=== PATIENT | female | born 1970 | race Caucasian/White ===

== ENCOUNTER 2020-12-04 20:39 | Emergency (ER) | payer BC, MEDICAID ==
[~2020-12-04] VITALS: Ht 160 cm; Wt 74.4 kg
[2020-12-04 21:04] VITALS: BP 148/91
[2020-12-04] MEDS ORDERED: IBUP-1955 PO (22:01)
== END 2020-12-04 22:30 | disposition home or self-care (01) ==
LOC: ER 20:47
DX: M79.622 Pain in left upper arm (principal); R22.32 Localized swelling, mass and lump, left upper limb; I10 Essential (primary) hypertension; K21.9 Gastro-esophageal reflux disease without esophagitis; Z88.6 Allergy status to analgesic agent
CPT/HCPCS: 93971-TC

== ENCOUNTER 2021-06-07 14:00 | Emergency (ER) | payer MEDICAID ==
[~2021-06-07] VITALS: Ht 160 cm; Wt 81.6 kg
[2021-06-07 14:00] VITALS: BP 140/90
[~2021-06-07 14:00] MED LIST: IBUP-1955 PO
[2021-06-07] MEDS ORDERED: KETOROLAC TROMETHAMINE INJ 30 MG/ML VIAL ONE (14:29)
[2021-06-07] MEDS ORDERED: KETOROLAC TROMETHAMINE INJ 30 MG/ML VIAL IM ONE (14:30)
[2021-06-07] MEDS ORDERED: CYCLOBENZAPRINE 10 MG TABLET PO ONE (14:30)
[2021-06-07] MEDS ORDERED: CYCLOBENZAPRINE 10 MG TABLET ONE (14:30)
--- NOTE | 2021-06-07 14:30 | NUR ---
patient verbalized "i am not ".
[2021-06-07] MEDS ORDERED: CYCL5TAB PO (14:46)
[2021-06-07] MEDS ORDERED: IBUP-1957 PO (14:46)
--- NOTE | 2021-06-07 14:58 | NUR ---
Patient discharged to home in stable condition. Written and verbal after care instructions given. Patient verbalizes understanding of instruction.
== END 2021-06-07 14:59 | disposition home or self-care (01) ==
LOC: ER 14:10
DX: M26.621 Arthralgia of right temporomandibular joint (principal); I10 Essential (primary) hypertension; K21.9 Gastro-esophageal reflux disease without esophagitis; E03.9 Hypothyroidism, unspecified; Z88.6 Allergy status to analgesic agent; Z79.899 Other long term (current) drug therapy
CPT/HCPCS: 96372; 99283; J1885